=== PATIENT | male | born 1945 | race Caucasian/White ===

== ENCOUNTER → 2023-01-07 12:46 | Outpatient (CLI) | payer OTHER, SELFPAY ==
--- NOTE | 2023-01-07 12:48 | DI.MRI.S_ITS ---
PROCEDURE: MR PELIS WO/W CON INDICATIONS: Benign prostatic hyperplasia TECHNIQUE: Coronal HASTE, axial T1 FSE with fat saturation, 3-plane nonbreath-hold T2 FSE. After the administration of contrast, dynamic axial, delayed axial and coronal VIBE or 2-D FLASH with fat saturation through the pelvis. Optional diffusion weighted imaging and ADC may be performed. COMPARISON: None. FINDINGS: Image quality: Diffusion weighted and dynamic contrast enhanced images are diagnostic. Prostate: Gland size is 4.9 x 5.6 x 6.4 cm; ellipsoid gland volume is 91 mL. Lesion 1: Location: Left base, anterior transition zone. This is best seen on axial series 5, image 13, and sagittal series 7, image 15. Size: 1.3 x 1.0 cm. T2W signal: Moderately hypointense. Non circumscribed. DWI signal: Moderately hyperintense. ADC signal: Moderately hypointense. Enhancement: Yes. Extracapsular invasion: No. PI-RADS score: 4. Genitourinary system: Bladder wall thickness is normal. Distal ureters are non-distended. Bowel and peritoneum: No pathologic free pelvic fluid. Inferior colon and small bowel loops are normal in caliber. Nodes and vessels: No pelvic or inguinal adenopathy measuring greater than 8 mm short axis. Iliac vessels are normal in caliber. Soft tissues: No inguinal hernias. Bones: Marrow demonstrates normal overall signal, without lesions to suggest metastases. IMPRESSION: PI-RADS for lesion in the left anterior transition zone, as above. No suspicious pelvic chain lymph nodes. No aggressive osseous abnormality. Dictated by: Stephen Nelson M.D. on 01/07/2023 at 14:53 Approved by: Stephen Nelson M.D. on 01/07/2023 at 15:06
== END ==
PROVIDERS: PCP Family Medicine; Referring Provider Specialist; Visit Provider Specialist
DX: N40.0 Benign prostatic hyperplasia without lower urinary tract symptoms (principal); N42.9 Disorder of prostate, unspecified
CPT/HCPCS: 72197

== ENCOUNTER → 2023-03-23 14:19 | Outpatient (CLI) | payer OTHER, SELFPAY ==
[2023-03-23 16:00] LABS: Bacteria Urine None Seen; Culture Indicated Urine Cult Not Indicated; Hyaline Casts Urine 1-5/LPF; Mucus Urine 1+ (Negative); RBC Urine 30-100/HPF (0-5/HPF); Squamous Epithelial Cell Urine 0-1 /HPF (0-5/HPF); WBC Urine 0-1/HPF (0-5/HPF)
== END ==
PROVIDERS: PCP Family Medicine; Referring Provider Specialist; Visit Provider Specialist
DX: N40.0 Benign prostatic hyperplasia without lower urinary tract symptoms (principal); R97.20 Elevated prostate specific antigen [PSA]
CPT/HCPCS: 81015

== ENCOUNTER → 2024-03-17 10:53 | Outpatient (CLI) | payer OTHER, SELFPAY ==
--- NOTE | 2024-03-17 10:54 | DI.CT.S_ITS ---
PROCEDURE: CT KIDNEY URETER BLADDER (KUB) INDICATIONS: hematuria, BPH, elevated PSA TECHNIQUE: Axial sections were acquired from the lung bases to the pubic symphysis. Coronal and sagittal reformats were performed. For radiation dose reduction, the following was used: automated exposure control, adjustment of mA and/or kV according to patient size. COMPARISON: None. FINDINGS: Image quality: Diagnostic. Lower Chest: No significant findings. URINARY: Right Kidney: No stones or hydronephrosis. Right Ureter: No hydroureter. Left Kidney: 6 x 3 mm nonobstructing lower pole stone with a Hounsfield measurement of 602.0. Left Ureter: No hydroureter. Bladder: Normal wall thickness. No stones. ABDOMEN: Liver: No contour-deforming solid mass. Gallbladder: No radiopaque gallstones or wall thickening. Biliary ducts: No biliary dilation. Pancreas: No ductal dilation. Spleen: Size is within normal limits. Adrenal Glands: No adrenal nodules. Stomach and Bowel: Normal colonic caliber, without significant wall thickening. Extensive sigmoid diverticulosis without evidence of acute diverticulitis. Peritoneum: No abnormal intraperitoneal fluid. No free air. Ventral Wall: No hernia. Abdominal Nodes: No enlarged retroperitoneal or mesenteric lymph nodes. Vessels: Aorta and inferior vena cava are normal in size. PELVIS: Pelvic Organs: Moderate prostatomegaly.. Pelvic Nodes: Unremarkable. Miscellaneous: Small fat containing bilateral inguinal hernias, left greater than right. Bones: Lumbar degenerative change. No lytic or blastic bony lesions. No compression fractures. IMPRESSION: 1. 6 x 3 mm nonobstructing left lower pole renal stone. 2. No ureteral stones. No hydronephrosis. 3. Moderate prostatomegaly. 4. Extensive sigmoid diverticulosis without evidence of acute diverticulitis. Dictated by: Aramis Diaz M.D. on 03/17/2024 at 12:06 Approved by: Aramis Diaz M.D. on 03/17/2024 at 12:09
== END ==
LOC: CT 10:54
PROVIDERS: PCP Family Medicine; Referring Provider Specialist; Visit Provider Specialist
DX: N40.1 Benign prostatic hyperplasia with lower urinary tract symptoms (principal); N13.8 Other obstructive and reflux uropathy; R31.9 Hematuria, unspecified; R97.20 Elevated prostate specific antigen [PSA]; N20.0 Calculus of kidney; K57.30 Diverticulosis of large intestine without perforation or abscess without bleeding; K40.20 Bilateral inguinal hernia, without obstruction or gangrene, not specified as recurrent
CPT/HCPCS: 74176

== ENCOUNTER → 2024-04-20 10:21 | Outpatient (CLI) | payer OTHER, SELFPAY ==
--- NOTE | 2024-04-20 10:23 | DI.MRI.S_ITS ---
PROCEDURE: MR PELIS WO/W CON INDICATIONS: Hematuria TECHNIQUE: Coronal HASTE, axial T1 FSE with fat saturation, 3-plane nonbreath-hold T2 FSE. After the administration of contrast, dynamic axial, delayed axial and coronal VIBE or 2-D FLASH with fat saturation through the pelvis. Diffusion weighted imaging and ADC was performed. COMPARISON: [facility], MR, MR PELVIS WO/W CON, 01/07/2023, 13:27. FINDINGS: Image quality: Diffusion weighted and dynamic contrast enhanced images are diagnostic. Prostate: 3.8 x 5.5 x 4.1 cm. Estimated volume is 45 cc. Left anterior transitional zone lesion measuring 1.4 x 1.1 x 1.4 cm again seen. This is very slightly larger than prior imaging in December of 2022. T2 score 4. DWI score 4. DCE positive. PI-RADS 4. If targeted biopsies are positive, extent of capsular contact raises concern for micro capsular involvement. On precontrast imaging, there is ill-defined T1 signal within the left seminal vesicle, left greater than right half of the prostate. Transitional zone heterogenous nodules are present, either well encapsulated or mostly encapsulated, compatible with PI-RADS 1 or 2 likely BPH nodules. Mildly T2 hypointense heterogenous striated appearance of the peripheral zone is commonly seen with current or prior prostatitis, PI-RADS 2. Genitourinary system: Unremarkable bladder where visualized Bowel and peritoneum: No evidence of small bowel obstruction. No pathologic ascites. There are colonic diverticula. Nodes and vessels: No pathologic lymph nodes by size criteria. No aneurysmal vessel identified Soft tissues: Unremarkable pelvic wall. Possible small fat containing inguinal hernias Bones: No acute or suspicious osseous finding. IMPRESSION: PI-RADS 4 left anterior transitional zone lesion is slightly larger than December 2022. If targeted biopsies are positive, consider possibility of micro capsular involvement and possible prostate PET-CT. Proteinaceous or hemorrhagic products (with intrinsic T1 signal) are seen within the left seminal vesicle and left greater than right halves of the prostate. This could be related prior biopsy or other source of hemorrhage. In the setting of hematuria, consider further evaluation with cystoscopy and CT IVP. Other findings above Dictated by: Marcelo Albrecht M.D. on 04/21/2024 at 11:09 Approved by: Marcelo Albrecht M.D. on 04/21/2024 at 11:17
[2024-04-20 12:27] LABS: Prostate Specific Antigen 8.22 ng/mL (0.10-4.00)
[2024-04-25 07:10] LABS: PSA, Total 7.4 ng/mL (0.0-4.0)
== END ==
PROVIDERS: PCP Family Medicine; Referring Provider Specialist; Visit Provider Specialist
DX: N40.1 Benign prostatic hyperplasia with lower urinary tract symptoms (principal); N13.8 Other obstructive and reflux uropathy; R97.20 Elevated prostate specific antigen [PSA]; K57.90 Diverticulosis of intestine, part unspecified, without perforation or abscess without bleeding
CPT/HCPCS: 36415; 72197; 84153; 84154; A9579